=== PATIENT | female | born 1955 | race Caucasian/White ===

== ENCOUNTER → 2018-11-04 07:30 | Outpatient (CLI) | payer MEDICARE, OTHER, SELFPAY ==
[2018-11-04 08:17] LABS: Add Manual Diff / Slide Review NO; Basophils Absolute Auto 0 /uL (0-100); Basophils Percent Auto 0.4 % (0-2); Eosinophils Absolute Auto 100 /uL (0-450); Eosinophils Percent Auto 1.9 % (2-4); Hematocrit 41.9 % (36-46); Hemoglobin 14.1 g/dL (12.0-16.0); Lymphocytes Absolute Auto 1700 /uL (1100-4500); Lymphocytes Percent Auto 34.8 % (25-40); Mean Corpuscular HGB Conc 33.6 % (30-36); Mean Corpuscular Hemoglobin 30.7 PG (26-34); Mean Corpuscular Volume 91.5 fL (80-100); Monocytes Absolute Auto 300 /uL (0-900); Neutrophils Absolute Auto 2700 /uL (1500-7000); Neutrophils Percent Auto 55.9 % (50-75); Platelet Count 289 X10^3/uL (150-400); Red Blood Cell Count 4.58 X10^6/uL (4.0-5.2); Red Cell Distribution Width 13.2 % (11.6-14.8); White Blood Cell Count 4.9 X10^3/uL (4.5-11.0)
[2018-11-04 08:52] LABS: Alanine Aminotransferase 24 IU/L (9-52); Albumin 4.7 g/dL (3.5-5.0); Albumin Globulin Ratio 1.6 (1.0-2.8); Alkaline Phosphatase 52 U/L (38-126); Aspartate Aminotransferase 22 IU/L (14-36); BUN Creatinine Ratio 22.2 (6-22); Bilirubin Total 0.6 mg/dL (0.2-1.3); Blood Urea Nitrogen 20 mg/dL (7-17); Carbon Dioxide 27 mmol/L (22-32); Chloride 100 mmol/L (98-107); Cholesterol 249 mg/dL (140-199); Estimated Glomerular Filt Rate > 60.0 mL/min (>60); Glucose 89 mg/dL (80-110); HDL Cholesterol 100 mg/dL (40-60); HEMOLYSIS < 15 (0-50); LDL Cholesterol Calculated 139 mg/dL (<100); Potassium 4.2 mmol/L (3.4-5.1); Sodium 136 mmol/L (137-145); Total Protein 7.7 g/dL (6.3-8.2); Triglycerides 49 mg/dL (35-150)
[2018-11-04 08:59] LABS: Free T3, Triiodothyronine Free 3.21 pg/mL (2.77-5.27); Free T4, Direct Thyroxine 1.08 ng/dL (0.78-2.19)
[2018-11-04 09:01] LABS: C-Reactive Protein Quant < 0.5 mg/dL (<1.0)
[2018-11-05 13:57] LABS: Thyroid Peroxidase Antibodies 1 IU/mL (< 9)
[2018-11-06 16:35] LABS: DNA (DS) Antibody 1 IU/mL (< 5)
[2018-11-06 22:31] LABS: (tTG) Ab, IgA < 1 U/mL
== END ==
PROVIDERS: PCP Family Medicine; Visit Provider Family Medicine
DX: E83.52 Hypercalcemia (principal); I10 Essential (primary) hypertension; Z13.220 Encounter for screening for lipoid disorders; R63.4 Abnormal weight loss; R76.8 Other specified abnormal immunological findings in serum
CPT/HCPCS: 36415; 80053; 80061; 83516; 84439; 84443; 84481; 85025; 86140; 86225; 86255; 86376

== ENCOUNTER → 2018-11-11 14:37 | Outpatient (CLI) | payer MEDICARE, OTHER, SELFPAY ==
[2018-11-13 14:16] LABS: Parathyroid Hormone Int 57 pg/mL (14-64)
== END ==
PROVIDERS: PCP Family Medicine; Visit Provider Family Medicine
DX: E83.52 Hypercalcemia (principal)
CPT/HCPCS: 36415; 83970

== ENCOUNTER → 2019-06-08 10:19 | Outpatient (CLI) | payer MEDICARE, OTHER, SELFPAY ==
[2019-06-08 11:32] LABS: Mean Corpuscular HGB Conc 34.2 % (30-36); Mean Corpuscular Hemoglobin 31.1 PG (26-34); Mean Corpuscular Volume 91.1 fL (80-100); Platelet Count 290 X10^3/uL (150-400); Red Blood Cell Count 4.83 X10^6/uL (4.0-5.2); Red Cell Distribution Width 13.1 % (11.6-14.8); White Blood Cell Count 6.1 X10^3/uL (4.5-11.0)
[2019-06-08 12:12] LABS: TSH w/ Reflex to FT4 1.52 uIU/mL (0.47-4.68)
[2019-06-08 12:14] LABS: BUN Creatinine Ratio 21.3 (6-22); Blood Urea Nitrogen 17 mg/dL (7-17); Calcium 11.1 mg/dL (8.4-10.2); Carbon Dioxide 28 mmol/L (22-32); Chloride 103 mmol/L (98-107); Estimated Glomerular Filt Rate > 60.0 mL/min (>60); Glucose 97 mg/dL (80-110); HEMOLYSIS < 15 (0-50); Potassium 4.5 mmol/L (3.4-5.1); Sodium 137 mmol/L (137-145)
== END ==
PROVIDERS: PCP Family Medicine; Visit Provider Registered Nurse
DX: R00.2 Palpitations (principal); I49.8 Other specified cardiac arrhythmias
CPT/HCPCS: 36415; 80048; 83735; 84443; 85027

== ENCOUNTER → 2019-06-16 11:41 | Outpatient (CLI) | payer MEDICARE, OTHER, SELFPAY ==
--- NOTE | 2019-07-13 09:28 | PM.CARDMON.1 ---
[facility] Report Referral & Results Date Patient Seen: 06/16/19 Requesting provider: Almaz Wan Indication: Cardiac arrhythmia Duration of monitoring (days): 14 Diary information: There were 3 patient diary entries and 15 triggered events. The triggered events were associated with sinus rhythm as well as PVCs PACs and ventricular bigeminy and ventricular trigeminy The patient diary events were associated with sinus rhythm, PVCs, and ventricular bigeminy Data: Minimum heart rate identified was 46 beats per minute at 00:00 on 06/29/2019 Maximum sinus heart rate was 147 beats per minute at 11:01 on 06/27/2019 Maximum overall heart rate was 171 beats per minute at 10:51 on 06/24/2019 during a 4 beat run of SVT Less than 1% of identified beats were supraventricular ectopic in origin Approximately 1.8% of identified beats were ventricular ectopic in origin including 38 seconds of ventricular trigeminy and 18 seconds of ventricular bigeminy There were 2 runs of SVT the longest lasting 7 beats and the fastest lasting 4 beats as above Impression: Patient with more significant ventricular dysrhythmias including simple PVCs as well as ventricular bigeminy and trigeminy Rare and very short runs of SVT or atrial tachycardia Clinical correlation suggested
== END ==
PROVIDERS: PCP Family Medicine; Visit Provider Registered Nurse
DX: I49.9 Cardiac arrhythmia, unspecified (principal)
CPT/HCPCS: 0296T; 0298T

== ENCOUNTER → 2019-06-30 09:12 | Outpatient (CLI) | payer MEDICARE, OTHER, SELFPAY ==
--- NOTE | 2019-06-30 09:13 | DI.ECHO.S_ITS ---
[facility] +---------+ : : [address] : [place] : : : : [id number] : : : : Phone: [phone]+ Echocardiogram Report + + :Name: YIN GUTIERREZ Study Date: 06/30/2019 Height: 63 in : :[facility] Exam Location: [facility] Weight: 110 lb : : Gender: Female BSA: 1.5 m2 : :: 1955 Age: 64 yrs BP: 118/75 mmHg: :Reason For Study: PALPITATIONS : : Performed By: Joe Hale : :Referring: FLAKITO BRAGA : + + Interpretation Summary The left ventricle is normal in size. The left ventricular ejection fraction is normal. There are no focal wall motion abnormalities. The right ventricle is normal in size and function. Both atria are normal in size. The right ventricular systolic pressure is estimated to be at least 24 mmHg based on an estimated right atrial pressure of 3 mm Hg. No hemodynamically significant valvular abnormalities. No prior echo for comparison. Procedure: A two-dimensional transthoracic echocardiogram with color flow and Doppler was performed. The study quality was technically adequate. Images from the parasternal window were difficult to obtain and are suboptimal in quality. There is no prior echocardiogram noted for this patient. The patient was in normal sinus rhythm during the exam. Left Ventricle: The left ventricle is normal in size. There is normal left ventricular wall thickness. The ejection fraction is estimated to be 60-65%. The left ventricular ejection fraction is normal. There are no focal wall motion abnormalities. Diastolic parameters suggest probable normal left ventricular diastolic function and normal filling pressures. Right Ventricle: The right ventricle is normal in size and function. Atria: Both atria are normal in size. There is no Doppler evidence for an interatrial shunt. Mitral Valve: The mitral valve is normal in structure and function. There is trace mitral regurgitation. Aortic Valve: The aortic valve opens well. No aortic regurgitation is present. Tricuspid Valve: The tricuspid valve is normal in structure and function. The right ventricular systolic pressure is estimated to be at least 24 mmHg based on an estimated right atrial pressure of 3 mm Hg. Pulmonic Valve: The pulmonic valve is not well visualized. There is no pulmonic valvular regurgitation. Great Vessels: The aortic root is normal size. The ascending aorta could not be visualized. The pulmonary artery is normal size. The IVC is of normal diameter and collapses greater than 50% with a sniff. This suggests a low right atrial pressure of 3 mm Hg. Pericardium/ Pleura There is no pericardial effusion. There is no pleural effusion. MMode/2D Measurements & Calculations LVIDd: 3.9 cm LVOT diam: 1.9 cm LVIDs: 2.7 cm Ao Arch Diam (Prox Trans): 2.1 cm FS: 29.8 % EPSS: 0.41 cm IVSd: 0.60 cm LVPWd: 0.62 cm LV childress. diameter/BSA (cm/m^2): 2.6 LV sys. diameter/BSA (cm/m^2): 1.8 LA A2 area: 14.6 cm2 RA long axis: 4.2 cm LA A4 area: 17.0 cm2 RA area: 13.6 cm2 LA length (vol): 5.1 cm RA vol: 37.0 ml LA vol: 41.2 ml RA : 24.7 ml/m2 LA vol index: 27.4 ml/m2 IVC diam: 1.3 cm Doppler Measurements & Calculations Ao V2 max: 116.3 cm/sec LVOT Max Harrison: 93.1 cm/sec Ao V2 mean: 78.7 cm/sec LV V1 max P.5 mmHg Ao max P.4 mmHg LV V1 VTI: 19.1 cm Ao mean P.7 mmHg TAYLOR(I,D): 2.5 cm2 Ao V2 VTI: 21.8 cm TAYLOR(V,D): 2.3 cm2 sev ratio: 0.88 TAYLOR indexed to BSA (cm^2/m^2): 1.7 MV E max harrison: 82.6 cm/sec TR max harrison: 231.5 cm/sec MV A max harrison: 69.2 cm/sec TR max P.4 mmHg MV E/A: 1.2 PA V2 max: 87.4 cm/sec Med Peak E' Harrison: 10.2 cm/sec PA V2 mean: 64.7 cm/sec E/E' med: 8.1 PA mean P.8 mmHg Lat Peak E' Harrison: 10.6 cm/sec PA pr(Accel): 19.1 mmHg E/E' lat: 7.8 PA Accel Time: 0.12 sec E/e' average: 7.9 MV dec time: 0.16 sec SV(LVOT): 55.0 ml Electronically signed by: Hari Palumbo M.D. on Reading Physician:07/01/2019 05:28 PM
== END ==
PROVIDERS: PCP Family Medicine; Visit Provider Registered Nurse
DX: R00.2 Palpitations (principal)
CPT/HCPCS: 93306

== ENCOUNTER → 2019-07-17 10:18 | Outpatient (CLI) | payer MEDICARE, OTHER, SELFPAY ==
--- NOTE | 2019-07-17 10:21 | DI.US.S_ITS ---
PROCEDURE: US PELVIC COMPLETE INDICATIONS: PMB TECHNIQUE: Real-time scanning was performed of the pelvic organs, with image documentation. Additional endovaginal scanning was necessary due to incomplete visualization of the adnexal and endometrial structures by transabdominal scanning. COMPARISON: [facility], CT, ABDOMEN/PELVIS WITH CONTRAST, 12/09/2015, 8:10. [facility], US, PELVIC COMPLETE, 11/08/2015, 8:06. FINDINGS: Transabdominal scanning: Limited scanning through the kidneys shows no hydronephrosis. No pathologic free abdominal or pelvic fluid. Endovaginal scanning: Uterus: Uterus is normal in size at 6.6 x 3.1 x 4.7 cm. The endometrium is again not well-visualized secondary to 2 intramural fibroids which appear similar to prior examination with the largest measuring up to 1.8 cm. Ovaries: Ovaries not identified. No adnexal masses IMPRESSION: 1. The endometrial complex is again not well-visualized secondary to uterine fibroids which appear similar to prior examination. If indicated, pre and post contrast gynecologic protocol MRI could be performed for further assessment. Dictated by: Dontrell BROWNE Interpreted: Nallely Worrell MD on 07/17/2019 at 11:17 Approved by: Nallely Wrorell M.D. on 07/17/2019 at 14:42
== END ==
PROVIDERS: PCP Family Medicine; Visit Provider Family Medicine
DX: N95.0 Postmenopausal bleeding (principal); D25.1 Intramural leiomyoma of uterus
CPT/HCPCS: 76830; 76856

== ENCOUNTER → 2019-12-07 13:44 | Outpatient (CLI) | payer MEDICARE, OTHER, SELFPAY ==
--- NOTE | 2019-12-07 13:46 | DI.RAD.S_ITS ---
PROCEDURE: XR PELVIS 1-2V INDICATIONS: pain in pelvis TECHNIQUE: Single view(s) of the pelvis acquired. COMPARISON: [facility], PELVIS 1 OR 2 VIEWS, 04/18/2010, 11:11. [facility], PELVIS 1 OR 2 VIEWS, 08/18/2007, 13:25. FINDINGS: Bones: No fractures or dislocations. No suspicious bony lesions. Prior right total hip arthroplasty shows no evidence of device loosening or disruption. Soft tissues: Visualized bowel gas pattern is normal. No suspicious soft tissue calcifications. IMPRESSION: Normal alignment persisting in this patient with prior right total hip arthroplasty, no source of new pain is found. Dictated by: Stephan Latham M.D. on 12/07/2019 at 14:53 Approved by: Stephan Latham M.D. on 12/07/2019 at 14:54
--- NOTE | 2019-12-07 13:46 | DI.US.S_ITS ---
PROCEDURE: US PELVIC COMPLETE INDICATIONS: POSTMENOPAUSAL BLEEDING AND DISCHARGE TECHNIQUE: Real-time scanning was performed of the pelvic organs, with image documentation. Additional endovaginal scanning was necessary due to incomplete visualization of the adnexal and endometrial structures by transabdominal scanning. COMPARISON: [facility], , US PELVIC COMPLETE, 07/17/2019, 10:26. FINDINGS: Transabdominal scanning: Limited scanning through the kidneys shows no hydronephrosis. No pathologic free abdominal or pelvic fluid. Endovaginal scanning: Uterus: Uterus is normal in size at 4 x 2.7 x 4.5 cm. The endometrium measures 2 mm in combined thickness. Hypoechoic uterine lesions are seen, which are attributed to fibroids. They measure as follows: Mid central uterus, intramural a 1.7 x 1.3 x 1.4 cm Mid central uterus, intramural, 1.7 x 1.7 x 1.4 cm Ovaries: Neither ovary can be seen. No adnexal masses are seen. IMPRESSION: The endometrial stripe is not thickened. Small fibroids are seen. Dictated by: Sherman Bowling M.D. on 12/07/2019 at 16:59 Approved by: Sherman Bowling M.D. on 12/07/2019 at 17:01
== END ==
PROVIDERS: PCP Family Medicine; Referring Provider Family Medicine; Visit Provider Family Medicine
DX: N95.0 Postmenopausal bleeding (principal); D25.1 Intramural leiomyoma of uterus; N89.8 Other specified noninflammatory disorders of vagina; R10.2 Pelvic and perineal pain; Z96.641 Presence of right artificial hip joint
CPT/HCPCS: 72170; 76830; 76856

== ENCOUNTER → 2020-04-29 17:38 | Outpatient (CLI) | payer MEDICARE, OTHER, SELFPAY ==
[2020-05-02 10:40] LABS: SARS CoV19 IgG Negative (Negative)
== END ==
PROVIDERS: PCP Family Medicine; Referring Provider Family Medicine; Visit Provider Family Medicine
DX: Z03.818 Encounter for observation for suspected exposure to other biological agents ruled out (principal)
CPT/HCPCS: 36415; 86769

== ENCOUNTER → 2020-12-09 10:45 | Outpatient (CLI) | payer MEDICARE, OTHER, SELFPAY ==
--- NOTE | 2020-12-09 11:07 | DI.RAD.S_ITS ---
PROCEDURE: XR THORACIC SPINE 3V INDICATIONS: BACK PAIN TECHNIQUE: 3 views of the thoracic spine were acquired. COMPARISON: None. FINDINGS: Bones: No fractures or dislocations. No suspicious bony lesions. Twelve pairs of ribs are noted, and appear intact where visualized. S-shaped thoracolumbar spine scoliosis. Moderate degenerative disc disease noted throughout the thoracic spine. Soft tissues: No paravertebral stripe thickening. IMPRESSION: 1. Multilevel degenerative disc disease. 2. S-shaped scoliosis. 3. No fracture. No acute osseous lesion. If symptoms and/or clinical suspicion for pathology persists, evaluation with MRI should be considered for further assessment. Dictated by: Angie Do MD, PhD on 12/09/2020 at 17:20 Approved by: Angie Do MD, PhD on 12/09/2020 at 17:21
--- NOTE | 2020-12-09 11:07 | DI.RAD.S_ITS ---
PROCEDURE: XR LUMBAR SPINE 2-3V INDICATIONS: BACK PAIN TECHNIQUE: 3 views of the lumbar spine were acquired. COMPARISON: None. FINDINGS: Bones: 5 [id number] vertebrae are present. There is normal bony alignment. Mild convex left curvature of the thoracolumbar spine. No vertebral body compression fractures. No suspicious bony lesions. Soft tissues: Overlying bowel gas pattern is normal. No suspicious soft tissue calcifications. IMPRESSION: No fracture. No acute osseous lesion. If symptoms and/or clinical suspicion for pathology persists, evaluation with MRI should be considered for further assessment. Dictated by: Angie Do MD, PhD on 12/09/2020 at 17:22 Approved by: Angie Do MD, PhD on 12/09/2020 at 17:23
--- NOTE | 2020-12-09 11:07 | DI.RAD.S_ITS ---
PROCEDURE: XR RIBS LT MIN 3V W CXR1V INDICATIONS: rib pain/osteoporosis TECHNIQUE: 2 views of the left ribs were acquired, along with a single view chest. COMPARISON: None. FINDINGS: Surgical changes and devices: None. Bones and chest wall: No fractures or dislocations. No suspicious bony lesions. Overlying soft tissues appear unremarkable. Lungs and pleura: No pleural effusions or pneumothorax. Lungs appear clear. Mediastinum: Mediastinal contours appear normal. Heart size is normal. IMPRESSION: No displaced rib fracture. No acute cardiopulmonary disease process. Dictated by: Angie Do MD, PhD on 12/09/2020 at 17:21 Approved by: Angie Do MD, PhD on 12/09/2020 at 17:22
[2020-12-09 11:28] LABS: Add Manual Diff / Slide Review NO; Basophils Absolute Auto 0 /uL (0-100); Basophils Percent Auto 0.6 % (0-2); Eosinophils Absolute Auto 100 /uL (0-450); Eosinophils Percent Auto 1.5 % (2-4); Hematocrit 41.1 % (36-46); Hemoglobin 13.5 g/dL (12.0-16.0); Lymphocytes Absolute Auto 1600 /uL (1100-4500); Lymphocytes Percent Auto 28.1 % (25-40); Mean Corpuscular Hemoglobin 30.5 PG (26-34); Mean Corpuscular Volume 92.6 fL (80-100); Monocytes Absolute Auto 400 /uL (0-900); Monocytes Percent Auto 7.2 % (3-14); Neutrophils Absolute Auto 3500 /uL (1500-7000); Neutrophils Percent Auto 62.6 % (50-75); Platelet Count 268 X10^3/uL (150-400); Red Blood Cell Count 4.43 X10^6/uL (4.0-5.2); Red Cell Distribution Width 13.4 % (11.6-14.8); White Blood Cell Count 5.6 X10^3/uL (4.5-11.0)
[2020-12-09 11:49] LABS: Erythrocyte Sedimentation Rate 5 MM/HR (0-20)
[2020-12-09 11:55] LABS: Alanine Aminotransferase 15 IU/L (<35); Albumin 4.5 g/dL (3.5-5.0); Albumin Globulin Ratio 1.7 (1.0-2.8); Alkaline Phosphatase 62 U/L (38-126); Aspartate Aminotransferase 26 IU/L (14-36); BUN Creatinine Ratio 29.2 (6-22); Bilirubin Total 0.5 mg/dL (0.2-1.3); Blood Urea Nitrogen 21 mg/dL (7-17); C-Reactive Protein Quant < 0.5 mg/dL (<1.0); Calcium 10.8 mg/dL (8.4-10.2); Carbon Dioxide 30 mmol/L (22-32); Chloride 100 mmol/L (98-107); Estimated Glomerular Filt Rate > 60.0 mL/min (>60); Globulin 2.7 g/dL (1.7-4.1); Glucose 95 mg/dL (80-110); HEMOLYSIS < 15 (0-50); Potassium 4.2 mmol/L (3.4-5.1); Sodium 135 mmol/L (137-145); Total Protein 7.2 g/dL (6.3-8.2)
[2020-12-11 16:11] LABS: ANA Screen, IFA Negative (.)
== END ==
PROVIDERS: PCP Family Medicine; Referring Provider Family Medicine; Visit Provider Family Medicine
DX: R53.83 Other fatigue (principal); M54.9 Dorsalgia, unspecified; R07.81 Pleurodynia; R76.8 Other specified abnormal immunological findings in serum; M81.0 Age-related osteoporosis without current pathological fracture; M54.5 Low back pain; M51.34 Other intervertebral disc degeneration, thoracic region; M41.24 Other idiopathic scoliosis, thoracic region
CPT/HCPCS: 36415; 71101; 72072; 72100; 80053; 85025; 85651; 86038; 86140

== ENCOUNTER → 2021-01-06 08:12 | Outpatient (CLI) | payer MEDICARE, OTHER, SELFPAY ==
--- NOTE | 2021-01-06 08:14 | DI.MRI.S_ITS ---
PROCEDURE: MR THORACIC SPINE WO CON INDICATIONS: low back pain, sciatica, mid back pain TECHNIQUE: Noncontrast sagittal T1 spine echo and T2 fast spin echo, sagittal STIR, axial T1 and T2 fast spin echo through the thoracic spine. COMPARISON: None. FINDINGS: Image quality: Excellent. Alignment and Curvature: There is normal bony alignment. Bone Marrow: Reactive endplate changes noted adjacent to the T4-T5, T5-T6, T6-T7, T7-T8 and T8-T9 discs. No acute vertebral body compression fractures. Spinal Cord: Visualized spinal cord is normal in size and signal. Paraspinous Soft Tissues: No paravertebral masses. Miscellaneous: Loss of disc signal noted throughout the thoracic spine. Loss of height noted in the T3-T4, T4-T5, T5-T6, T6-T7, T7-T8 and T8-T9 disc. Small central T2-T3 disc protrusion. No central stenosis. No neural foraminal narrowing. No neural compression. IMPRESSION: 1. Multilevel degenerative disease. 2. No central stenosis. 3. No neural foraminal narrowing. 4. No neural compression. 5. No vertebral body compression fracture. Dictated by: Angie Do MD, PhD on 01/06/2021 at 12:08 Approved by: Angie Do MD, PhD on 01/06/2021 at 12:30
--- NOTE | 2021-01-06 08:14 | DI.MRI.S_ITS ---
PROCEDURE: MR LUMBAR SPINE WO CON INDICATIONS: low back pain, sciatica, mid back pain TECHNIQUE: Noncontrast sagittal T1 spin echo and T2 fast echo, sagittal STIR, axial T1 and T2 fast spin echo through the lumbar spine. In cases with scoliosis, additional coronal T2 fast spin echo may be performed. COMPARISON: [facility], MR, L-SPINE WITHOUT CONTRAST, 06/22/2010, 8:01. FINDINGS: Image quality: Excellent. Alignment and Curvature: There is normal bony alignment. Bone Marrow: Marrow is of normal overall signal. No acute vertebral body compression fractures. Spinal Cord: Conus medullaris terminates at the L1 level. Visualized cord demonstrates normal signal and size. Paraspinous Soft Tissues: No paravertebral masses. Discs: Moderate to severe desiccation is present L5-S1, moderate L1-L2, L2-3 and mild to moderate throughout the remainder of the lumbar spine. L1-L2: No disc bulge, spinal stenosis or foraminal narrowing. No interval change. Mild facet and ligamentum flavum hypertrophy. L2-L3: Minimal disc bulge, without spinal stenosis or foraminal narrowing. No interval change. Mild facet and ligamentum flavum hypertrophy. Minimal epidural lipomatosis. L3-L4: No disc bulge, spinal stenosis or foraminal narrowing. No interval change. Facet and ligamentum flavum hypertrophy are present. Minimal epidural lipomatosis. L4-L5: No disc bulge, spinal stenosis or foraminal narrowing. Facet and ligamentum flavum hypertrophy are present. No interval change. Minimal epidural lipomatosis. L5-S1: Minimal disc bulge without spinal stenosis. Minimal interval progression. IMPRESSION: 1. Relatively stable exam demonstrating minimal degenerative disc bulges most notable at L2-3 and L5-S1. Dictated by: Nighat Chavez M.D. on 01/06/2021 at 10:31 Approved by: Nighat Chavez M.D. on 01/06/2021 at 11:51
== END ==
PROVIDERS: PCP Family Medicine; Referring Provider Family Medicine; Visit Provider Family Medicine
DX: M54.5 Low back pain (principal); M54.6 Pain in thoracic spine; M54.30 Sciatica, unspecified side
CPT/HCPCS: 72146; 72148

== ENCOUNTER → 2021-11-29 07:35 | Outpatient (CLI) | payer MEDICARE, OTHER, SELFPAY ==
[2021-11-29 08:18] LABS: Specimen Label KIT TEST
== END ==
PROVIDERS: PCP Family Medicine; Referring Provider Chiropractor; Visit Provider Chiropractor
DX: Z13.9 Encounter for screening, unspecified (principal)
CPT/HCPCS: 36415; 99001

== ENCOUNTER 2021-12-18 21:08 | Emergency (ER) | payer MEDICARE, OTHER, SELFPAY ==
[2021-12-18 21:14] VITALS: BP 181/84; PULSE 98; RESP 16; TEMP 36.4; O2SAT 99; BMI 19.5
[2021-12-18 23:06] VITALS: O2SAT 98
[2021-12-18 23:07] VITALS: BP 144/75; PULSE 69; O2SAT 98
--- NOTE | 2021-12-18 23:17 | ED.HA ---
HPI - Headache General Chief Complaint: Headache Stated Complaint: NECK PAIN Time Seen by Provider: 12/18/21 22:53 Source: patient Mode of arrival: Ambulatory History of Present Illness HPI Narrative: Patient is a 66-year-old female here for evaluation of a headache/neck pain. Patient reports that approximately 3 days ago she started have discomfort in the back of her head. States she initially felt a pop. Has had pain since then. Has quite a bit of discomfort with movement of her head. No fevers. Took some ibuprofen without much improvement. Does not feel like it is a muscle spasm. Has no other neurologic symptoms. No sore throat. No numbness and tingling in her upper and lower extremities. No vision changes. No specific balance issues but does state that she sometimes feels woozy. Related Data Previous Rx's Medication Instructions Recorded valacyclovir 500 mg tablet 1,000 mg PO BID #20 tab 12/28/19 varicella-zoster glycoE [id number] 0.5 ml IM ONCE #1 each 03/22/20 adj(PF) 50 mcg/0.5 mL IM susp, kit (Shingrix (PF)) losartan 25 mg tablet See Rx Instructions .ROUTE 09/25/21 .COMPLEX #90 tab Allergies Allergy/AdvReac Type Severity Reaction Status Date / Time No Known Drug Allergies Allergy Verified 12/18/21 21:18 Review of Systems Constitutional Constitutional: Denies fatigue, Denies fever(s) and Reports headache(s) Eyes Eyes: Reports as per HPI and Reports system reviewed and no additional complaints, except as documented ENT Ears, Nose, Mouth, and Throat: Reports system reviewed and no additional complaints, except as documented, Reports as per HPI, Reports headache(s), Reports neck pain, Denies sinus pain and Denies sore throat Musculoskeletal Musculoskeletal: Reports neck pain Neurologic Neurologic: Reports system reviewed and no additional complaints, except as documented and Reports headache(s) Endocrine Endocrine: Denies fatigue Hematologic/Lymphatic On Anticoagulants: No Patient History Medical History Essential hypertension Hearing loss Irritable bowel syndrome Serum calcium elevated Surgical History History of hip replacement History of tonsillectomy Status post appendectomy Family History Mother Hypertension Sister Age: 68 Ovarian cancer Breast cancer Hypertension Social History marital status: education level: master's degree Smoking Status: Never smoker alcohol intake: current substance use type: does not use Smoking Status: Never smoker alcohol intake frequency: 0-2 drinks per day Substance Use Type: does not use Exam Initial Vital Signs Initial Vital Signs: Vital Signs Temperature 97.5 F L 12/18/21 21:14 Pulse Rate 98 H 12/18/21 21:14 Respiratory Rate 16 12/18/21 21:14 Blood Pressure 181/84 H 12/18/21 21:14 Pulse Oximetry 99 12/18/21 21:14 Const General: cooperative, healthy appearing and well developed HENMT Head: normal to inspection and normocephalic Face and sinus: normal facial exam Resp Effort & Inspection: normal respiratory effort Cardio Rate: regular rate Skin General: no rashes or lesions noted Neuro General: patient alert, patient awake, patient oriented x3, tone normal, moves all extremities, no focal motor deficits and not confused Extrem General: normal to inspection Psych Appearance: grossly normal and well kempt Course Orders Ordered: ED Orders 12/18/21 23:18 CT angio head and neck Stat 12/18/21 23:25 Basic Metabolic Panel Stat Complete Blood Count AUTO DIFF Stat Vital Signs Vital signs: Vital Signs - 8 hr 12/18/21 21:14 12/18/21 23:06 12/18/21 23:07 Temperature 97.5 F L Pulse Rate 98 H 69 Respiratory Rate 16 Blood Pressure 181/84 H 144/75 H Pulse Oximetry 99 98 98 12/18/21 23:30 12/19/21 00:13 12/19/21 00:30 Temperature Pulse Rate 64 66 65 Respiratory Rate Blood Pressure Pulse Oximetry 99 98 99 12/19/21 01:00 12/19/21 01:05 Temperature Pulse Rate 62 61 Respiratory Rate 16 Blood Pressure 129/83 Pulse Oximetry 98 99 MDM - Headache Lab Data Attestation: I reviewed the patient's lab results. Result diagrams: 12/18/21 23:25 12/18/21 23:25 Labs: Lab Results 12/18/21 12/18/21 Range/Units 23:25 23:25 WBC 8.6 (4.5-11.0) X10^3/uL RBC 3.96 L (4.0-5.2) X10^6/uL Hgb 11.9 L (12.0-16.0) g/dL Hct 35.9 L (36-46) % MCV 90.5 (80-100) fL MCH 30.1 (26-34) PG MCHC 33.3 (30-36) % RDW 12.4 (11.6-14.8) % Plt Count 415 H (150-400) X10^3/uL Neut % (Auto) 68.2 (50-75) % Lymph % (Auto) 19.3 L (25-40) % Williamson % (Auto) 9.6 (3-14) % Eos % (Auto) 1.9 L (2-4) % Baso % (Auto) 1.0 (0-2) % Neut # (Auto) 5900 (7474-1502) /uL Lymph # (Auto) 1700 (1304-9791) /uL Williamson # (Auto) 800 (0-900) /uL Eos # (Auto) 200 (0-450) /uL Baso # (Auto) 100 (0-100) /uL Sodium 136 L (137-145) mmol/L Potassium 4.6 (3.4-5.1) mmol/L Chloride 104 (98-107) mmol/L Carbon Dioxide 30 (22-32) mmol/L BUN 19 H (7-17) mg/dL Creatinine 0.75 (0.52-1.04) mg/dL Estimated GFR > 60.0 (>60) mL/min BUN/Creatinine Ratio 25.3 H (6-22) Glucose 112 H (80-110) mg/dL Calcium 10.6 H (8.4-10.2) mg/dL Imaging Data CTA - brain/neck: Radiologist's Impression: [address] [address] [address] Scan Report Signed Patient: Mary Bauer MR#: [id number] : 1955 Acct:[id number] Age/Sex: 66 / F Date of Service: 12/18/21 Loc: ED Accession Number: [id number] ?? Procedure: CT angio head and neck Ordering Provider: Shashank Bermudez D.O. PROCEDURE:? CT ANGIO HEAD AND NECK ? INDICATIONS:? posterior head and neck pain ? TECHNIQUE:? Pre-contrast 4.5 mm thick sections acquired from the foramen magnum to the vertex. After the administration of intravenous contrast, 1 mm thick sections acquired from the aortic arch through the [place] of [place].? Post-contrast 4.5 mm thick sections then re-acquired from the foramen magnum to the vertex.? 3-dimensional fycdoey-qmllzdpun-thwxrltegh (MIP) and/or volume rendering reformats were acquired of the central intracranial vasculature and neck separately. ? COMPARISON:? None. ? FINDINGS:? Image quality:? Excellent.? ? BRAIN:? CSF spaces:? Ventricles are symmetric in size and shape.? Basal cisterns are patent.? No extra-axial fluid collections.? ? Brain:? No midline shift.? No acute intracranial hemorrhage or mass effect.? Probable prominent.? Perivascular space at the inferior left basal ganglia versus chronic lacunar infarct.? Gordillo-white matter interface appears intact.? ? Skull and face:? Calvarium and facial bones appear intact, without suspicious lesions.? Orbits appear normal.? ? Sinuses:? Sinuses and mastoids are clear.? ? HEAD CT ANGIOGRAPHY:? Anterior circulation:? Minimal intracranial right internal carotid artery atherosclerotic calcifications without intermittently significant stenosis.? The intracranial left internal carotid artery is patent.? The flow within the paired anterior cerebral arteries is normal and symmetric.? The flow within the middle cerebral arteries is normal and symmetric.? The anterior communicating artery is seen.? No aneurysms are seen.? ? Posterior circulation:? Visualized portions of the vertebral arteries demonstrate normal caliber, and join to form a normal appearing basilar artery.? A type origin of the left posterior cerebral artery is noted a hypoplastic or aplastic P1 segment, a normal variant.? Flow within the posterior cerebral arteries is otherwise normal and symmetric.? No aneurysms are seen.? ? NECK CT ANGIOGRAPHY:? Carotid system:? The great vessels demonstrate a conventional anatomy as they arise from the aortic arch.? The origins of the common carotid arteries appear patent.? The common carotid arteries demonstrate normal caliber and courses.? The bifurcation regions are both widely patent.? The internal carotid arteries demonstrate normal calibers and courses.? ? Posterior circulation:? The origins of the vertebral arteries both appear widely patent.? The more superior extracranial portions of both vertebral arteries also demonstrate normal courses and calibers.? They join to form a normal appearing basilar artery.? ? Soft tissues:? Visualized neck soft tissues demonstrate no suspicious abnormalities.? ? Bones:? No suspicious bony lesions.? Mild multilevel degenerative changes are seen in the cervical spine. ? ? IMPRESSION:? 1. No acute intracranial hemorrhage or mass effect. 2. Prominent perivascular space versus less likely small chronic lacunar infarct at the inferior left basal ganglia. 3. No hemodynamically significant arterial stenosis or occlusion in the head or neck.? No arterial dissection.? No intracranial aneurysm is seen.? ? Any quantitative measurements of stenosis were performed using NASCET criteria.? ? ? Dictated by: Bc Castellano M.D. on 12/19/2021 at 0:26 ? ? Approved by: Bc Castellano M.D. on 12/19/2021 at 0:37?? MDM Narrative Medical decision making narrative: Patient declined offer for symptom treatment, pain medication. Patient does have quite a bit of difficulty with movement of her neck. No real specific muscle spasm felt on exam. No other systemic symptoms that would be consistent with this. I feel that we should hold on a lumbar puncture as I feel that the risks outweigh the benefits. Considered CVA/TIA however her head CT is unremarkable and other than the headache and the neck discomfort has no other neurologic deficits. The CTA of her head and neck is unremarkable. No signs of dissection, mass, intracranial hemorrhage. Unsure the exact etiology however this very well could still be musculoskeletal in origin. We will hold on further workup for now. Patient was given follow-up instructions and return precautions. She expressed understanding and agreement. Discharge Plan Departure Patient Disposition: Home Clinical Impression: Headache, Neck pain Instructions: DI for Headache Activity Restrictions/Additional Instructions: The CT scan today is very reassuring. I recommend that you continue with a conservative measures such as heat/ice/massage. Recommend you contact your primary doctor for a follow-up. Return to the emergency department for any new or worsening symptoms. Prescriptions: No Action Shingrix (PF) 50 mcg/0.5 mL suspension for reconstitution 0.5 ml IM ONCE Qty: 1 0RF Rx Instructions: as a single dose, repeat in 2-6 mos valacyclovir 500 mg tablet 1,000 mg PO BID Qty: 20 0RF Rx Instructions: Take 2 tablets twice day for 1 day....the others are for additional outbreaks. losartan 25 mg tablet See Rx Instructions .ROUTE .COMPLEX Qty: 90 0RF Dose Instruction: TAKE 1 TABLET BY MOUTH DAILY Rx Instructions: TAKE 1 TABLET BY MOUTH DAILY Referrals: Angeli Bowen DO [Primary Care Provider] -
--- NOTE | 2021-12-18 23:18 | DI.CT.S_ITS ---
PROCEDURE: CT ANGIO HEAD AND NECK INDICATIONS: posterior head and neck pain TECHNIQUE: Pre-contrast 4.5 mm thick sections acquired from the foramen magnum to the vertex. After the administration of intravenous contrast, 1 mm thick sections acquired from the aortic arch through the [place] of [place]. Post-contrast 4.5 mm thick sections then re-acquired from the foramen magnum to the vertex. 3-dimensional aytiynz-ppwgursah-dgktbkodgn (MIP) and/or volume rendering reformats were acquired of the central intracranial vasculature and neck separately. COMPARISON: None. FINDINGS: Image quality: Excellent. BRAIN: CSF spaces: Ventricles are symmetric in size and shape. Basal cisterns are patent. No extra-axial fluid collections. Brain: No midline shift. No acute intracranial hemorrhage or mass effect. Probable prominent. Perivascular space at the inferior left basal ganglia versus chronic lacunar infarct. Gordillo-white matter interface appears intact. Skull and face: Calvarium and facial bones appear intact, without suspicious lesions. Orbits appear normal. Sinuses: Sinuses and mastoids are clear. HEAD CT ANGIOGRAPHY: Anterior circulation: Minimal intracranial right internal carotid artery atherosclerotic calcifications without intermittently significant stenosis. The intracranial left internal carotid artery is patent. The flow within the paired anterior cerebral arteries is normal and symmetric. The flow within the middle cerebral arteries is normal and symmetric. The anterior communicating artery is seen. No aneurysms are seen. Posterior circulation: Visualized portions of the vertebral arteries demonstrate normal caliber, and join to form a normal appearing basilar artery. A type origin of the left posterior cerebral artery is noted a hypoplastic or aplastic P1 segment, a normal variant. Flow within the posterior cerebral arteries is otherwise normal and symmetric. No aneurysms are seen. NECK CT ANGIOGRAPHY: Carotid system: The great vessels demonstrate a conventional anatomy as they arise from the aortic arch. The origins of the common carotid arteries appear patent. The common carotid arteries demonstrate normal caliber and courses. The bifurcation regions are both widely patent. The internal carotid arteries demonstrate normal calibers and courses. Posterior circulation: The origins of the vertebral arteries both appear widely patent. The more superior extracranial portions of both vertebral arteries also demonstrate normal courses and calibers. They join to form a normal appearing basilar artery. Soft tissues: Visualized neck soft tissues demonstrate no suspicious abnormalities. Bones: No suspicious bony lesions. Mild multilevel degenerative changes are seen in the cervical spine. IMPRESSION: 1. No acute intracranial hemorrhage or mass effect. 2. Prominent perivascular space versus less likely small chronic lacunar infarct at the inferior left basal ganglia. 3. No hemodynamically significant arterial stenosis or occlusion in the head or neck. No arterial dissection. No intracranial aneurysm is seen. Any quantitative measurements of stenosis were performed using NASCET criteria. Dictated by: Bc Castellano M.D. on 12/19/2021 at 0:26 Approved by: Bc Castellano M.D. on 12/19/2021 at 0:37
--- NOTE | 2021-12-18 23:19 | PC.NURSE ---
pt c/o pain in the back of the head that started suddenly x 2 days pt has been taking ibuprofen and tylenol without relief, pain increases with movement but pt is able to move head
[2021-12-18 23:30] VITALS: PULSE 64; O2SAT 99
[2021-12-18 23:36] LABS: Add Manual Diff / Slide Review NO; Basophils Absolute Auto 100 /uL (0-100); Eosinophils Absolute Auto 200 /uL (0-450); Eosinophils Percent Auto 1.9 % (2-4); Hematocrit 35.9 % (36-46); Hemoglobin 11.9 g/dL (12.0-16.0); Lymphocytes Absolute Auto 1700 /uL (1100-4500); Lymphocytes Percent Auto 19.3 % (25-40); Mean Corpuscular HGB Conc 33.3 % (30-36); Mean Corpuscular Hemoglobin 30.1 PG (26-34); Mean Corpuscular Volume 90.5 fL (80-100); Monocytes Absolute Auto 800 /uL (0-900); Monocytes Percent Auto 9.6 % (3-14); Neutrophils Absolute Auto 5900 /uL (1500-7000); Neutrophils Percent Auto 68.2 % (50-75); Platelet Count 415 X10^3/uL (150-400); Red Blood Cell Count 3.96 X10^6/uL (4.0-5.2); Red Cell Distribution Width 12.4 % (11.6-14.8); White Blood Cell Count 8.6 X10^3/uL (4.5-11.0)
[2021-12-18 23:46] LABS: BUN Creatinine Ratio 25.3 (6-22); Blood Urea Nitrogen 19 mg/dL (7-17); Calcium 10.6 mg/dL (8.4-10.2); Carbon Dioxide 30 mmol/L (22-32); Chloride 104 mmol/L (98-107); Estimated Glomerular Filt Rate > 60.0 mL/min (>60); Glucose 112 mg/dL (80-110); HEMOLYSIS < 15 (0-50); Potassium 4.6 mmol/L (3.4-5.1); Sodium 136 mmol/L (137-145)
[2021-12-19 00:13] VITALS: PULSE 66; O2SAT 98
[2021-12-19 00:30] VITALS: PULSE 65; O2SAT 99
--- NOTE | 2021-12-19 00:59 | PC.NURSE ---
charted on wrong pt
[2021-12-19 01:00] VITALS: PULSE 62; O2SAT 98
[2021-12-19 01:05] VITALS: BP 129/83; PULSE 61; RESP 16; O2SAT 99
== END 2021-12-19 01:25 | disposition home or self-care (01) ==
PROVIDERS: Emergency Provider Emergency Medicine; PCP Family Medicine
DX: R51.9 Headache, unspecified (principal); M54.2 Cervicalgia
CPT/HCPCS: 36415; 70496; 70498; 80048; 85025; 99284; Q9967

== ENCOUNTER → 2022-03-10 08:16 | Outpatient (CLI) | payer MEDICARE, OTHER, SELFPAY | PROVIDERS: PCP Family Medicine; Referring Provider Chiropractor; Visit Provider Chiropractor | DX: I10 Essential (primary) hypertension (principal) | CPT/HCPCS: 36415; 99001 ==

== ENCOUNTER 2023-09-15 22:21 | Emergency (ER) | payer MEDICARE, OTHER, SELFPAY ==
[2023-09-15 22:28] VITALS: BP 175/87; PULSE 83; RESP 16; TEMP 36.8; O2SAT 100; BMI 19.5
--- NOTE | 2023-09-15 22:32 | DI.US.S_ITS ---
PROCEDURE: US PERIPH VENOUS LOW EXTREM LT INDICATIONS: PAIN TECHNIQUE: Real-time imaging, as well as color and pulse Doppler interrogation, were performed of the lower extremity deep veins from the inguinal ligament to the popliteal fossa, with documentation of the visualized calf veins. COMPARISON: None. FINDINGS: The common femoral, femoral, popliteal, and the visualized calf veins are normally compressible, and free of intraluminal thrombus. Color and pulse Doppler demonstrate normal phasic intraluminal flow. There is normal augmentation response to distal compression maneuver. A fluid collection is seen in the popliteal fossa measuring 4.3 x 1.1 x 2.0 cm. Connection with the joint space is not demonstrated on this exam. IMPRESSION: 1. No findings of lower extremity deep venous thrombosis. 2. Medial popliteal Sarmiento's cyst. Approved by: Bc Castellano M.D. on 09/15/2023 at 23:23
[2023-09-15 22:55] VITALS: BP 163/87; PULSE 79; O2SAT 98
[2023-09-15 23:17] VITALS: PULSE 79; O2SAT 98
[2023-09-15 23:18] VITALS: BP 165/77; PULSE 79; O2SAT 98
[2023-09-15 23:30] VITALS: BP 142/65; PULSE 71; O2SAT 98
[2023-09-16] VITALS: PULSE 68; O2SAT 98
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
== END 2023-09-16 00:18 | disposition home or self-care (01) ==
PROVIDERS: Emergency Provider Emergency Medicine; PCP Family Medicine
DX: S83.92XA Sprain of unspecified site of left knee, initial encounter (principal); X58.XXXA Exposure to other specified factors, initial encounter
CPT/HCPCS: 93971; 99283

== ENCOUNTER → 2023-12-20 16:41 | Outpatient (CLI) | payer MEDICARE, OTHER, SELFPAY ==
--- NOTE | 2023-12-20 17:00 | DI.MRI.S_ITS ---
PROCEDURE: MR KNEE LT WO CON INDICATIONS: knee pain, assess for meniscal tear TECHNIQUE: Noncontrast sagittal PD fast spin echo and T2 fast spin echo with fat saturation, sagittal 3-D FLASH with fat saturation; coronal T1 spin echo and PD fast spin echo with fat saturation, and axial PD fast spin echo with fat saturation through the knee. COMPARISON: None. FINDINGS: Image quality: Diagnostic Menisci: Medial: No full-thickness defect. Possible fraying at the periphery. There may be signal abnormality focally at the root, without full-thickness avulsion (10/20). Lateral: Intact. Meniscopopliteal fascicles maintained. Cruciate ligaments: Intact Medial structures: MCL: Intact Pes anserine tendons: Intact Semimembranosus: Mild insertional tendinopathy Lateral structures: LCL: Intact Biceps femoris: Intact IT band: Intact Popliteus tendon: Intact Anterior structures: Extensor mechanism: Intact. Mild prepatellar edema. Fat pads: Lufu-zi-jrladtyv edema is seen focally in the superolateral corner Medial retinaculum: Intact. Trochlea: Slightly shallow. Bone and joint: Bones: No acute fracture. Tiny foci of signal within the marrow, likely physiologic red marrow islands Cartilage: Full-thickness defect in the inferior and inferolateral patellar cartilage with subchondral edema. Ckwx-rn-jfuyrpro heterogeneity is seen in the cartilage elsewhere. No full-thickness defect otherwise. Mild osteophytes are present. Joint space: Physiologic fluid is present Sarmiento's cyst: Mild Sarmiento's cyst Soft tissues: No significant vascular or other soft tissue pathology. IMPRESSION: Focal contusion and cartilage loss in the inferior median ridge and inferior lateral aspect of the patella. There is adjacent edema in the superolateral corner of Hoffa's fat pad. Findings may represent a focal contusion with cartilage involvement versus repetitive/chronic injury related to maltracking. Cruciate and collateral ligaments appear intact. Possible fraying of the medial meniscal periphery. Questionable signal abnormality at the medial meniscal root insertion, possibly small partial tear or artifact, no full-thickness avulsion. Overall mild degenerative changes. Dictated by: Addy Clark M.D. on 12/23/2023 at 9:25 Approved by: Addy Clark M.D. on 12/23/2023 at 9:32
== END ==
PROVIDERS: PCP Family Medicine; Referring Provider Family Medicine; Visit Provider Family Medicine
DX: S80.02XA Contusion of left knee, initial encounter (principal); M79.4 Hypertrophy of (infrapatellar) fat pad; M71.22 Synovial cyst of popliteal space [Baker], left knee; M25.562 Pain in left knee
CPT/HCPCS: 73721

== ENCOUNTER → 2024-01-22 11:46 | Outpatient (CLI) | payer MEDICARE, OTHER, SELFPAY ==
[2024-01-25 07:07] LABS: Chlamydia trachomatis Negative (Negative); Mycoplasma genitalium Negative (Negative); Neisseria gonorrhoeae Negative (Negative)
== END ==
PROVIDERS: PCP Family Medicine; Visit Provider Family Medicine
DX: Z11.3 Encounter for screening for infections with a predominantly sexual mode of transmission (principal); Z11.51 Encounter for screening for human papillomavirus (HPV)
CPT/HCPCS: 87210; 87491; 87563; 87591

== ENCOUNTER 2024-03-26 10:43 | Emergency (ER) | payer MEDICARE, OTHER, SELFPAY ==
[2024-03-26] VITALS (17 sets, daily range): BP systolic 93–136; BP diastolic 59–96; PULSE 74–94; RESP 14; TEMP 36.5–37.3; O2SAT 96–100; BMI 19.3
[2024-03-26 11:33] LABS: Add Manual Diff / Slide Review NO; Basophils Absolute Auto 0 /uL (0-100); Basophils Percent Auto 0.2 % (0-2); Eosinophils Absolute Auto 0 /uL (0-450); Eosinophils Percent Auto 0.2 % (2-4); Hematocrit 49.5 % (36-46); Hemoglobin 17.1 g/dL (12.0-16.0); Lymphocytes Absolute Auto 600 /uL (1100-4500); Lymphocytes Percent Auto 8.9 % (25-40); Mean Corpuscular HGB Conc 34.5 % (30-36); Mean Corpuscular Hemoglobin 30.4 PG (26-34); Mean Corpuscular Volume 88.2 fL (80-100); Monocytes Absolute Auto 700 /uL (0-900); Monocytes Percent Auto 9.6 % (3-14); Neutrophils Absolute Auto 5700 /uL (1500-7000); Neutrophils Percent Auto 81.1 % (50-75); Platelet Count 289 X10^3/uL (150-400); Red Blood Cell Count 5.61 X10^6/uL (4.0-5.2)
[2024-03-26] MEDS: SODIUM CHLORIDE 0.9% 1,000 ML 1000 ML IV ×2 (11:35→17:07)
[2024-03-26] MEDS: ONDANSETRON 4 MG/2 ML INJ IV (11:37)
[2024-03-26 11:49] LABS: Alanine Aminotransferase 23 IU/L (<35); Albumin 4.6 g/dL (3.5-5.0); Albumin Globulin Ratio 1.4 (1.0-2.8); Alkaline Phosphatase 66 U/L (38-126); Aspartate Aminotransferase 27 IU/L (14-36); BUN Creatinine Ratio 17.9 (6-22); Bilirubin Total 0.7 mg/dL (0.2-1.3); Blood Urea Nitrogen 20 mg/dL (7-17); Calcium 11.4 mg/dL (8.4-10.2); Carbon Dioxide 25 mmol/L (22-32); Chloride 97 mmol/L (98-107); Estimated Glomerular Filt Rate 53 mL/min (>60); Globulin 3.3 g/dL (1.7-4.1); Glucose 136 mg/dL (80-110); HEMOLYSIS < 15 (0-50); Lipase 104 U/L (23-300); Potassium 4.1 mmol/L (3.4-5.1); Sodium 131 mmol/L (137-145); Total Protein 7.9 g/dL (6.3-8.2)
[2024-03-26 13:01] LABS: Bacteria Urine Occasional (0-1); Calcium Oxalate Crystals Urine Moderate; Culture Indicated Urine Cult Not Indicated; Mucus Urine 2+ (Negative); RBC Urine 0-1/HPF (0-5/HPF); Squamous Epithelial Cell Urine 0-1 /HPF (0-5/HPF); Urine Volume 10mL (spun); WBC Urine 0-1/HPF (0-5/HPF)
--- NOTE | 2024-03-26 13:41 | EKG_ITS ---
[address] [address] Test Date: 2024-03-26 Pat Name: Mary Bauer Department: [facility] Room: Gender: Female Regulatory Analyst: : 1955 Requested By: Order Number: [id number] Reading MD: Fco Groves MD Measurements Intervals [place] Rate: 90 P: 62 NE: 98 QRS: 88 QRSD: 78 T: 69 QT: 332 QTc: 406 Interpretive Statements Sinus rhythm with short NE Electronically Signed On 03-26-2024 14:34:53 PDT by Fco Groves MD
[2024-03-26 18:26] LABS: Adenovirus F 40/41 Not Detected (Not Detect); Astrovirus Not Detected (Not Detect); Campylobacter Not Detected (Not Detect); Clostridium difficile toxin AB Not Detected (Not Detect); Cryptosporidium Not Detected (Not Detect); Cyclospora cayetanensis Not Detected (Not Detect); Entamoeba histolytica Not Detected (Not Detect); Enteroaggregative E.coli Not Detected (Not Detect); Enteropathogenic E.coli Not Detected (Not Detect); Enterotoxigenic E.coli It/st Not Detected (Not Detect); Giardia lamblia Not Detected (Not Detect); Norovirus GI/GII Not Detected (Not Detect); Plesiomonsa shigelloides Not Detected (Not Detect); Rotavirus A Not Detected (Not Detect); Salmonella Detected (Not Detect); Sapovirus Not Detected (Not Detect); Shiga-like toxin-prod E.coli Not Detected (Not Detect); Shigella/Enteroinvasive E.coli Not Detected (Not Detect); Vibrio Not Detected (Not Detect); Vibrio cholerae Not Detected (Not Detect); Yersinia enterocolitica Not Detected (Not Detect)
--- NOTE | 2024-03-26 18:54 | ED.NAVMDI ---
HPI - Nausea/Vomiting/Diarrhea General Chief complaint: Nausea/Vomiting/Diarrhea Stated complaint: dehydration, diarrhea t-5, confusion, abd pain Time Seen by Provider: 03/26/24 17:56 Source: patient Mode of arrival: Wheelchair History of Present Illness HPI Narrative: 69-year-old female is here for evaluation of 5 days of nonbloody diarrhea. Did have vomiting at the beginning of her presenting symptoms but that has resolved. She states that she feels dehydrated. Was confused this morning. Was lightheaded. Abdominal pain whenever she eats or drinks anything. No recent travel. No recent antibiotic use. No urinary symptoms. Has not tried anything for symptoms prior to arrival. Related Data Previous Rx's Medication Instructions Recorded losartan 25 mg tablet 25 mg PO DAILY #90 tabs 10/10/23 conjugated estrogens 0.625 mg/gram 0.5 mg vaginal 2XW #30 grams 01/22/24 vaginal cream ciprofloxacin HCl 500 mg tablet 500 mg PO BID 10 days #20 tabs 03/26/24 (Cipro) ondansetron 4 mg disintegrating 4 mg PO Q6H PRN nausea and 03/26/24 tablet vomiting #10 tabs Allergies Allergy/AdvReac Type Severity Reaction Status Date / Time No Known Drug Allergies Allergy Verified 03/26/24 11:10 Review of Systems Review of Systems ROS Unobtainable: All systems reviewed & are unremarkable except as noted in HPI and below Patient History Medical History Dyspareunia Pulmonary hypertension, unspecified (06/23/12) Left knee pain Lumbosacral radiculopathy due to degenerative joint disease of spine Essential hypertension Serum calcium elevated Hearing loss Irritable bowel syndrome Surgical History History of hip replacement Status post appendectomy History of tonsillectomy Family History Mother Hypertension Sister Age: 70 Ovarian cancer Breast cancer Hypertension Social History marital status: education level: master's degree Smoking Status: Never smoker second hand exposure: No alcohol intake: current substance use type: does not use Smoking Status: Never smoker alcohol intake frequency: 0-2 drinks per day Substance Use Type: does not use Exam Initial Vital Signs Initial Vital Signs: Vital Signs Temperature 97.7 F 03/26/24 11:10 Pulse Rate 94 H 03/26/24 11:10 Respiratory Rate 14 03/26/24 11:10 Blood Pressure 93/62 03/26/24 11:10 Pulse Oximetry 99 03/26/24 11:10 Oxygen Delivery Method Room Air 03/26/24 11:10 Const General: cooperative and No ill appearing HENHI Head: normal to inspection and normocephalic Resp Effort & Inspection: normal respiratory effort Auscultation: clear to auscultation bilaterally Cardio Rate: regular rate Rhythm: regular rhythm GI Inspection: normal to inspection and non-distended Palpation: soft, No firm and No guarding Neuro General: patient alert and patient awake Extrem General: normal to inspection Course Orders Ordered: ED Orders 03/26/24 17:04 GI Panel (Film Array) Stat Discontinued Medications Ciprofloxacin (Ciprofloxacin 250 Mg Tablet) 500 mg PO NOW ONE Stop: 03/26/24 18:56 Last Admin: 03/26/24 19:08 Dose: 500 mg Documented By: PARISH Sodium Chloride (Normal Saline 0.9%) 1,000 mls @ 1,000 mls/hr IV BOLUS ONE Stop: 03/26/24 12:34 Last Infusion: 03/26/24 12:16 Dose: Infused Documented By: Admin: 03/26/24 11:35 Dose: 1,000 mls/hr Documented By: KATE Sodium Chloride (Normal Saline 0.9%) 1,000 mls @ 1,000 mls/hr IV BOLUS ONE Stop: 03/26/24 17:58 Last Infusion: 03/26/24 18:07 Dose: Infused Documented By: Admin: 03/26/24 17:07 Dose: 1,000 mls/hr Documented By: BRIAN Ondansetron HCl (Ondansetron 4 Mg/2 Ml Inj) 4 mg IV NOW PRN PRN Reason: Nausea And Vomiting Last Admin: 03/26/24 11:37 Dose: 4 mg Documented By: KATE Ondansetron HCl (Ondansetron 4 Mg Odt Prepack) 1 bottle MISC DIRECTED ONE Stop: 03/26/24 18:56 Last Admin: 03/26/24 19:09 Dose: 1 bottle Documented By: PARISH Vital Signs Vital signs: Vital Signs - 8 hr 03/26/24 15:00 03/26/24 15:01 03/26/24 15:01 Pulse Rate 77 75 Blood Pressure 122/59 L Pulse Oximetry 97 97 03/26/24 15:36 03/26/24 15:36 03/26/24 15:56 Pulse Rate 85 Blood Pressure 118/66 121/68 Pulse Oximetry 98 03/26/24 15:56 03/26/24 16:00 03/26/24 16:00 Pulse Rate 74 80 Blood Pressure 122/76 Pulse Oximetry 98 100 03/26/24 16:30 03/26/24 16:30 03/26/24 17:00 Pulse Rate 75 76 Blood Pressure 115/68 Pulse Oximetry 99 96 03/26/24 17:04 03/26/24 17:04 03/26/24 17:30 Pulse Rate 79 Blood Pressure 125/75 132/65 Pulse Oximetry 98 03/26/24 17:30 03/26/24 18:00 03/26/24 18:00 Pulse Rate 74 78 Blood Pressure 115/96 H Pulse Oximetry 99 99 03/26/24 18:30 03/26/24 19:00 03/26/24 19:12 Pulse Rate 92 H 79 Blood Pressure 136/74 Pulse Oximetry 98 98 03/26/24 19:12 Pulse Rate 83 Blood Pressure Pulse Oximetry 97 MDM - Nausea/Vomiting/Diarrhea Lab Data Attestation: I reviewed the patient's lab results. 03/26/24 11:23 03/26/24 11:23 Labs: Lab Results 03/26/24 03/26/24 03/26/24 Range/Units 11:23 12:25 17:04 WBC 7.0 (4.5-11.0) X10^3/uL RBC 5.61 H (4.0-5.2) X10^6/uL Hgb 17.1 H (12.0-16.0) g/dL Hct 49.5 H (36-46) % MCV 88.2 (80-100) fL MCH 30.4 (26-34) PG MCHC 34.5 (30-36) % RDW 13.0 (11.6-14.8) % Plt Count 289 (150-400) X10^3/uL Neut % (Auto) 81.1 H (50-75) % Lymph % (Auto) 8.9 L (25-40) % [place] % (Auto) 9.6 (3-14) % Eos % (Auto) 0.2 L (2-4) % Baso % (Auto) 0.2 (0-2) % Neut # (Auto) 5700 (8024-6810) /uL Lymph # (Auto) 600 L (2027-7023) /uL [place] # (Auto) 700 (0-900) /uL Eos # (Auto) 0 (0-450) /uL Baso # (Auto) 0 (0-100) /uL Sodium 131 L (137-145) mmol/L Potassium 4.1 (3.4-5.1) mmol/L Chloride 97 L (98-107) mmol/L Carbon Dioxide 25 (22-32) mmol/L BUN 20 H (7-17) mg/dL Creatinine 1.12 H (0.52-1.04) mg/dL Estimated GFR 53 L (>60) mL/min BUN/Creatinine Ratio 17.9 (6-22) Glucose 136 H (80-110) mg/dL Calcium 11.4 H (8.4-10.2) mg/dL Total Bilirubin 0.7 (0.2-1.3) mg/dL AST 27 (14-36) IU/L ALT 23 (<35) IU/L Alkaline Phosphatase 66 (38-126) U/L Total Protein 7.9 (6.3-8.2) g/dL Albumin 4.6 (3.5-5.0) g/dL Globulin 3.3 (1.7-4.1) g/dL Albumin/Globulin Ratio 1.4 (1.0-2.8) Lipase 104 (23-300) U/L Urine RBC 0-1/hpf (0-5/HPF) Urine WBC 0-1/hpf (0-5/HPF) Ur Squamous Epith Cells 0-1 /hpf (0-5/HPF) Calcium Oxalate Crystal Moderate H Urine Bacteria Occasional (0-1) (None) Urine Mucus 2+ H (Negative) Ur Culture Indicated? Cult not indicated Vol Urine Centrifuged 10ml (spun) Stl C. cayetanensis PCR Not detected (Not Detect) Stool Rotavirus (PCR) Not detected (Not Detect) Stool Adenovirus (PCR) Not detected (Not Detect) Stool Astrovirus (PCR) Not detected (Not Detect) Stool Cryptosporidium PCR Not detected (Not Detect) Stl E.coli Shiga Tox PCR Not detected (Not Detect) St Sh/Enteroin Ecoli PCR Not detected (Not Detect) Stl Enterotoxigenic E PCR Not detected (Not Detect) Stool EPEC (PCR) Not detected (Not Detect) Stl E. histolytica PCR Not detected (Not Detect) Stool Giardia Lamblia PCR Not detected (Not Detect) Stool Sapovirus (PCR) Not detected (Not Detect) Stl P. shigelloides PCR Not detected (Not Detect) St Y.enterocolitica PCR Not detected (Not Detect) Stool Vibrio (PCR) Not detected (Not Detect) Stl Vibrio cholerae PCR Not detected (Not Detect) Stl Enteroaggr Ecoli PCR Not detected (Not Detect) Stl Norovirus GI/GII PCR Not detected (Not Detect) Campylobacter (PCR) Not detected (Not Detect) C. difficile Tox (PCR) Not detected (Not Detect) Salmonella (PCR) Detected (Not Detect) Urine Dip Bedside Urine Glucose Negative Bedside Urine Bilirubin - Negative Bedside Urine Ketone ++ 40 Urine Specific [place] 1.030 Bedside Urine Occult Blood ++ Bedside Urine pH 6.0 Bedside Urine Protein + 30 Bedside Urine Urobilinogen +/- 1mg Bedside Urine Nitrite - Negative Bedside Urine Leukocytes - Negative Esterase ECG Data Attestation: I personally reviewed and interpreted this ECG as follows: Prior ECG tracings: available for review Interpretation: Sinus rhythm Ventricular rate 90 Normal axis Normal QRS Normal QTC No ST T wave changes MDM Narrative Medical decision making narrative: Patient does have a very benign exam. Received fluids. Her stool sample was positive for Salmonella. She does have a relatively benign abdominal exam without any distention. I do feel we can hold on radiologic studies for now. Patient tolerated a dose of oral antibiotics here in the ER. Will send home with a prescription for antibiotics. Patient was given return precautions. She expressed understanding and agreement. Discharge Plan Departure Patient Disposition: Home Clinical Impression: Salmonella Instructions: Diarrhea Activity Restrictions/Additional Instructions: Your prescription for antibiotics and nausea medication was sent to [facility]. Please start taking it as directed. I do recommend that you try to increase your fluid intake by drinking small amounts frequently. [place] diet that can be advanced as tolerated. Return to the emergency department for new symptoms. Contact your primary doctor for a follow-up. Prescriptions: New ciprofloxacin HCl [Cipro] 500 mg tablet 500 mg PO BID 10 Days Qty: 20 0RF ondansetron 4 mg tablet,disintegrating 4 mg PO Q6H PRN (Reason: nausea and vomiting) Qty: 10 0RF No Action conjugated estrogens 0.625 mg/gram cream 0.5 mg vaginal 2XW Qty: 30 0RF Rx Instructions: apply twice weekly losartan 25 mg tablet 25 mg PO DAILY Qty: 90 3RF Referrals: Andree Albrecht MD [Primary Care Provider] - Stand Alone Forms: Patient Portal/API
[2024-03-26] MEDS: CIPROFLOXACIN 250 MG TABLET 500 MG PO (19:08)
[2024-03-26] MEDS: ONDANSETRON 4 MG ODT PREPACK 1 BOTTLE MISC (19:09)
== END 2024-03-26 19:26 | disposition home or self-care (01) ==
PROVIDERS: Emergency Medicine; Emergency Provider Emergency Medicine; PCP Family Medicine
DX: A02.9 Salmonella infection, unspecified (principal); R10.9 Unspecified abdominal pain
CPT/HCPCS: 36415; 80053; 81003; 81015; 83690; 85025; 87507; 93005; 96361; 96374; 99284; J2405

== ENCOUNTER 2024-12-15 11:39 | Emergency (ER) | payer MEDICARE, OTHER, SELFPAY ==
[2024-12-15] VITALS (15 sets, daily range): BP systolic 129–216; BP diastolic 72–100; PULSE 62–87; RESP 12–25; TEMP 36.1; O2SAT 99–100; BMI 19.5
--- NOTE | 2024-12-15 12:06 | DI.CT.S_ITS ---
PROCEDURE: CT STROKE INDICATIONS: tia suspected TECHNIQUE: Noncontrast 4.5 mm thick angled axial sections acquired from the foramen magnum to the vertex, with coronal reformats. For radiation dose reduction, the following was used: automated exposure control, adjustment of mA and/or kV according to patient size. COMPARISON: [facility], CT, CT ANGIO HEAD AND NECK, 12/18/2021, 23:24. [facility], CT, CT ANGIO HEAD AND NECK, 12/15/2024, 12:17. FINDINGS: Image quality: Diagnostic. CSF spaces: Basal cisterns are patent. No extra-axial fluid collections. The ventricles are symmetric in size and shape. Brain: No intracranial bleeds or masses. There is cerebral volume loss for age, with resultant ventricular and sulcal prominence. There are periventricular and deep white matter chronic small vessel ischemic changes. There is intracranial internal carotid artery atherosclerosis. Skull and face: Calvarium and visualized facial bones appear intact, without suspicious lesions. Sinuses: Visualized sinuses and mastoids are clear. IMPRESSION: 1. No acute intracranial process. 2. Moderate atrophy and chronic microvascular ischemic changes. The above findings were discussed with Dr. Gordon Gutierrez on 12/15/2024 12:38 p.m. This study fulfills neurological imaging criteria for inclusion or exclusion of acute stroke therapies based on available published neurological guidelines. Dictated by: Nighat Chavez M.D. on 12/15/2024 at 12:36 Approved by: Nighat Chavez M.D. on 12/15/2024 at 12:38
--- NOTE | 2024-12-15 12:06 | DI.CT.S_ITS ---
PROCEDURE: CT ANGIO HEAD AND NECK INDICATIONS: tia suspected TECHNIQUE: After the administration of intravenous contrast, 1 mm thick sections acquired from the aortic arch through the [place]. 3-dimensional ptjppju-vzyrddqmo-hvuwovjjhk (MIP) and/or volume rendering reformats were acquired of the central intracranial vasculature and neck separately. For radiation dose reduction, the following was used: automated exposure control, adjustment of mA and/or kV according to patient size. COMPARISON: [facility], CT, CT STROKE, 12/15/2024, 12:17. [facility], CT, CT ANGIO HEAD AND NECK, 12/18/2021, 23:24. FINDINGS: Image quality: Diagnostic. BRAIN: See separately dictated CT head report of 12/15/2024. HEAD CT ANGIOGRAPHY: Anterior circulation: Intracranial internal carotid arteries are normal in size and flow. The flow within the paired anterior cerebral arteries is normal and symmetric. The flow within the middle cerebral arteries is normal and symmetric. The anterior communicating artery is seen. No aneurysms are seen. Posterior circulation: Left vertebral artery dominance. Visualized portions of the vertebral arteries demonstrate normal caliber, and join to form a normal appearing basilar artery. Flow within the posterior cerebral arteries is normal and symmetric. No aneurysms are seen. NECK CT ANGIOGRAPHY: Carotid system: The great vessels demonstrate a conventional anatomy as they arise from the aortic arch. The origins of the common carotid arteries appear patent. The common carotid arteries demonstrate normal caliber and courses. The bifurcation regions are both widely patent. The internal carotid arteries demonstrate normal calibers and courses. Posterior circulation: The origins of the vertebral arteries both appear widely patent. The more superior extracranial portions of both vertebral arteries also demonstrate normal courses and calibers. They join to form a normal appearing basilar artery. Soft tissues: Visualized neck soft tissues demonstrate no suspicious abnormalities. Bones: No suspicious bony lesions. Visualized cervical spine appears normally aligned. IMPRESSION: No significant intracranial arterial abnormality is seen. No significant abnormality is seen within the arteries of the neck. Any quantitative measurements of stenosis were performed using NASCET criteria. Dictated by: Nighat Chavez M.D. on 12/15/2024 at 12:39 Approved by: Nighat Chavez M.D. on 12/15/2024 at 12:40
--- NOTE | 2024-12-15 12:09 | ED_ITS ---
HPI - Neuro Symptoms/Deficit General Chief Complaint: Neuro Symptoms/Deficit Stated Complaint: per pt stroke workup sent by eye dr Time Seen by Provider: 12/15/24 11:53 Source: patient Mode of arrival: Ambulatory History of Present Illness HPI Narrative: This is a 69-year-old female referred to us from ophthalmology clinic for concerned about TIA. Patient is not presently symptomatic. She says that 3 days ago she had an episode where she noted that the upper part of the vision from her right eye was squiggly. Describes it as like heat waves coming off of Warm pavement. This lasted for about an hour and then resolved. Yesterday she also had visual changes involving her right eye with a larger area of similar visual changes and then loss of vision in the upper right eye. Has had some headaches with this, no nausea vomiting no focal numbness or weakness difficulty with speech or swallowing. Has not had similar symptoms in the past. Her only past medical history of hypertension she takes losartan 25 mg daily and said that she took it today. No diabetes or elevated cholesterol, not a smoker. Has not had similar symptoms in the past. Was seen in ophthalmology clinic head and examination is then referred here. The patient does not notice jaw claudication and does not have temporal headaches. On Anticoagulants: No Related Data Previous Rx's Medication Instructions Recorded losartan 25 mg tablet 25 mg PO DAILY #90 tabs 10/10/23 conjugated estrogens 0.625 mg/gram 0.5 mg vaginal 2XW #30 grams 01/22/24 vaginal cream ondansetron 4 mg disintegrating 4 mg PO Q6H PRN nausea and 03/26/24 tablet vomiting #10 tabs Allergies Allergy/AdvReac Type Severity Reaction Status Date / Time No Known Drug Allergies Allergy Verified 12/15/24 11:45 Review of Systems Hematologic/Lymphatic On Anticoagulants: No Patient History Medical History Dyspareunia Pulmonary hypertension, unspecified (06/23/12) Left knee pain Lumbosacral radiculopathy due to degenerative joint disease of spine Essential hypertension Serum calcium elevated Hearing loss Irritable bowel syndrome Surgical History History of hip replacement Status post appendectomy History of tonsillectomy Family History Mother Hypertension Sister Age: 71 Ovarian cancer Breast cancer Hypertension Social History marital status: education level: master's degree Smoking Status: Never smoker second hand exposure: No alcohol intake: current substance use type: does not use Smoking Status: Never smoker alcohol intake frequency: 0-2 drinks per day Exam Initial Vital Signs Initial Vital Signs: Vital Signs Temperature 97.0 F L 12/15/24 11:40 Pulse Rate 87 12/15/24 11:40 Respiratory Rate 13 12/15/24 11:40 Blood Pressure 216/100 H 12/15/24 11:40 Pulse Oximetry 99 12/15/24 11:40 Oxygen Delivery Method Room Air 12/15/24 11:40 Patient is hypertensive Const Other: well-appearing no acute distress HENMT HENMT Other: normocephalic atraumatic Eyes Other: pupils are symmetrically dilated, extraocular movements are intact, there are no visual field cuts Neck Other: supple without carotid bruit Resp Other: lungs are clear equal breath sounds normal effort Cardio Other: regular rhythm and rate no murmur or gallop Skin Other: warm and dry Neuro General: patient alert, patient oriented x3 and normal light touch, pain and propioception Cognition: normal cognition Speech: speech normal Motor: strength 5/5 throughout and no movement abnormalities noted Sensory Exam: no sensory deficits noted Coordination: [id number] test normal Course Orders Ordered: ED Orders 12/15/24 11:50 CRP [C-Reactive Protein Quant] Stat Complete Blood Count AUTO DIFF Stat Comprehensive Metabolic Panel Stat ESR [Erythrocyte Sedimentation Rate] Stat PTT Partial Thromboplastin Seth Stat Prothrombin Time INR Stat Troponin I Stat 12/15/24 12:[address] angio head and neck Stat EKG-12 Lead Stat 12/15/24 12:56 Urinalysis and Microscopic Stat 12/15/24 13:04 MR head/brain wo/w con Stat Consultations Consultation #1: discussed with Ophthalmology, Dr. Zamorano visual field cuts of the right eye with left retinal abnormality, concern for stroke, demyelinating disease, temporal arteritis Vital Signs Vital signs: Vital Signs - 8 hr 12/15/24 11:40 12/15/24 11:43 12/15/24 11:43 Temperature 97.0 F L Pulse Rate 87 Respiratory Rate 13 Blood Pressure 216/100 H 216/100 H Pulse Oximetry 99 100 Oxygen Delivery Method Room Air 12/15/24 12:00 12/15/24 12:28 12/15/24 12:28 Temperature Pulse Rate 83 75 Respiratory Rate 18 14 Blood Pressure 155/94 H Pulse Oximetry 100 100 Oxygen Delivery Method 12/15/24 12:30 12/15/24 12:30 12/15/24 12:54 Temperature Pulse Rate 74 Respiratory Rate 12 Blood Pressure 149/90 H 170/85 H Pulse Oximetry 100 Oxygen Delivery Method 12/15/24 12:54 12/15/24 13:00 12/15/24 13:00 Temperature Pulse Rate 70 68 Respiratory Rate 12 Blood Pressure 152/82 H Pulse Oximetry 100 100 Oxygen Delivery Method 12/15/24 13:30 12/15/24 13:30 12/15/24 14:00 Temperature Pulse Rate 66 Respiratory Rate 14 Blood Pressure 146/80 H 129/72 Pulse Oximetry 100 Oxygen Delivery Method 12/15/24 14:00 12/15/24 14:45 12/15/24 14:47 Temperature Pulse Rate 62 70 Respiratory Rate 15 Blood Pressure 136/74 Pulse Oximetry 99 Oxygen Delivery Method 12/15/24 14:47 12/15/24 15:00 12/15/24 15:00 Temperature Pulse Rate 72 74 Respiratory Rate 15 18 Blood Pressure 137/79 Pulse Oximetry 100 99 Oxygen Delivery Method 12/15/24 15:30 12/15/24 15:30 12/15/24 16:00 Temperature Pulse Rate 74 Respiratory Rate 25 H Blood Pressure 180/86 H 144/80 H Pulse Oximetry 99 Oxygen Delivery Method 12/15/24 16:00 12/15/24 18:26 12/15/24 18:26 Temperature Pulse Rate 68 76 Respiratory Rate 14 17 Blood Pressure 139/77 Pulse Oximetry 99 99 Oxygen Delivery Method MDM - Neuro Symptoms/Deficit Lab Data Lab results narrative: CBC with diff and CMP are unremarkable normal CRP normal ESR 12/15/24 11:50 12/15/24 11:50 Labs: Lab Results 12/15/24 12/15/24 Range/Units 11:50 12:56 WBC 6.6 (4.5-11.0) X10^3/uL RBC 4.57 (4.0-5.2) X10^6/uL Hgb 14.0 (12.0-16.0) g/dL Hct 41.3 (36-46) % MCV 90.3 (80-100) fL MCH 30.5 (26-34) PG MCHC 33.8 (30-36) % RDW 13.3 (11.6-14.8) % Plt Count 313 (150-400) X10^3/uL Neut % (Auto) 63.6 (50-75) % Lymph % (Auto) 28.0 (25-40) % [place] % (Auto) 6.8 (3-14) % Eos % (Auto) 1.2 L (2-4) % Baso % (Auto) 0.4 (0-2) % Neut # (Auto) 4200 (9290-1276) /uL Lymph # (Auto) 1900 (8359-9153) /uL [place] # (Auto) 400 (0-900) /uL Eos # (Auto) 100 (0-450) /uL Baso # (Auto) 0 (0-100) /uL ESR 7 (0-20) MM/HR PT 10.4 (9.4-12.5) SECONDS INR 0.9 (0.9-1.3) APTT 36 (25.1-36.5) SECONDS Sodium 137 (137-145) mmol/L Potassium 4.3 (3.4-5.1) mmol/L Chloride 104 (98-107) mmol/L Carbon Dioxide 24 (22-32) mmol/L BUN 18 H (7-17) mg/dL Creatinine 0.82 (0.52-1.04) mg/dL Estimated GFR > 60 (>60) mL/min BUN/Creatinine Ratio 22.0 (6-22) Glucose 92 (80-110) mg/dL Calcium 10.7 H (8.4-10.2) mg/dL Total Bilirubin 0.6 (0.2-1.3) mg/dL AST 32 (14-36) IU/L ALT 22 (<35) IU/L Alkaline Phosphatase 61 (38-126) U/L Troponin I < 0.012 (0.01-0.034) ng/mL C-Reactive Protein < 0.5 (<1.0) mg/dL Total Protein 8.0 (6.3-8.2) g/dL Albumin 5.0 (3.5-5.0) g/dL Globulin 3.0 (1.7-4.1) g/dL Albumin/Globulin Ratio 1.7 (1.0-2.8) Urine Color Yellow Urine Appearance Clear Urine pH 7.0 (4.5-8.0) Ur Specific [place] <=1.005 (1.000-1.035) Urine Protein Negative (Negative) Urine Glucose (UA) Negative (Negative) g/dL Urine Ketones Negative (NEGATIVE) Urine Occult Blood Trace-intact (Negative) Urine Nitrate Negative (Negative) Urine Bilirubin Negative (NEGATIVE) Urine Urobilinogen 0.2 (0.2) E.U./dL Ur Leukocyte Esterase Negative (NEGATIVE) Urine RBC None seen (0-5/HPF) Urine WBC None seen (0-5/HPF) Ur Squamous Epith Cells 0-1 /hpf (0-5/HPF) Urine Bacteria None seen (None) Ur Culture Indicated? Cult not indicated Vol Urine Centrifuged 10ml (spun) Imaging Data MRI brain: Radiologist's Impression: [place] [address] Magnetic Resonance Report Signed Patient: Mary Bauer MR#: [id number] : 1955 Acct:[id number] Age/Sex: 69 / F Date of Service: 12/15/24 Loc: ED Accession Number: [id number] Procedure: MR head/brain wo/w con Ordering Provider: Gordon Gutierrez MD PROCEDURE: MR HEAD/BRAIN WO/W CON INDICATIONS: visual changes TIA vs demyelinating disease TECHNIQUE: Noncontrast axial T1 spin echo, axial T2 fast spin echo, sagittal and axial FLAIR, coronal T2 fast spin echo, axial gradient echo, axial diffusion and ADC through the brain. After the administration of contrast, axial and coronal and sagittal T1 spin echo with fat saturation through the brain. COMPARISON: [facility], CT, CT STROKE, 12/15/2024, 12:17. [facility], CT, CT ANGIO HEAD AND NECK, 12/15/2024, 12:17. [facility], CT, CT ANGIO HEAD AND NECK, 12/18/2021, 23:24. FINDINGS: Image quality: Excellent. CSF spaces: Basal cisterns are patent. No extra-axial fluid collections. Ventricles are normal in size and shape. Brain: No midline shift. No intracranial bleeds or masses. No abnormal intracranial enhancement. There is cerebral volume loss for age. There is periventricular white matter chronic small vessel ischemic change. The brainstem appears normal. Diffusion-weighted images demonstrate no acute infarct. No chronic ischemic insults. Normal intravascular flow voids are present. Skull and face: Calvarial marrow is normal in signal. Orbits appear normal. Sinuses: Sinuses and mastoids appear clear. IMPRESSION: 1. No acute intracranial process. 2. Mild atrophy and chronic microvascular ischemic changes. No convincing changes of demyelinating disease. Dictated by: Nighat Chavez M.D. on 12/15/2024 at 15:06 Approved by: Nighat Chavez M.D. on 12/15/2024 at 15:08 CT angio head and neck: Radiologist's Impression: reviewed radiology report, no significant intracranial or cervical abnormality CT scan - head: My Impression: independent review, no acute findings Radiologist's Impression: no acute abnormality per Radiology come on ECG Data Interpretation: ECG shows normal sinus rhythm no acute findings MDM Narrative Medical decision making narrative: 69-year-old female with 2 recent episodes of transient visual field cuts. Differential diagnosis includes TIA, stroke, temporal arteritis and demyelinating disease. Imaging is reassuring, she has not had any non visual neurologic deficits. TIA is less likely at this point. No imaging findings to suggest stroke or cerebrovascular disease. recommended follow up with Ophthalmology and primary care. Discharge Plan Departure Patient Disposition: Home Clinical Impression: Monocular visual disturbance Activity Restrictions/Additional Instructions: emergency department evaluation today is reassuring. I recommend you follow up with Ophthalmology soon and follow up with your primary care provider. If you have recurrent neurologic symptoms please recheck in the emergency department immediately. Continue previous home medications. Prescriptions: No Action conjugated estrogens 0.625 mg/gram cream 0.5 mg vaginal 2XW Qty: 30 0RF Rx Instructions: apply twice weekly losartan 25 mg tablet 25 mg PO DAILY Qty: 90 3RF ondansetron 4 mg tablet,disintegrating 4 mg PO Q6H PRN (Reason: nausea and vomiting) Qty: 10 0RF Referrals: Andree Albrecht MD [Primary Care Provider] - Stand Alone Forms: Patient Portal/API/Survey
[2024-12-15 12:16] LABS: Add Manual Diff / Slide Review NO; Basophils Absolute Auto 0 /uL (0-100); Basophils Percent Auto 0.4 % (0-2); Eosinophils Absolute Auto 100 /uL (0-450); Eosinophils Percent Auto 1.2 % (2-4); Hematocrit 41.3 % (36-46); INR 0.9 (0.9-1.3); Lymphocytes Absolute Auto 1900 /uL (1100-4500); Mean Corpuscular HGB Conc 33.8 % (30-36); Mean Corpuscular Hemoglobin 30.5 PG (26-34); Mean Corpuscular Volume 90.3 fL (80-100); Monocytes Absolute Auto 400 /uL (0-900); Monocytes Percent Auto 6.8 % (3-14); Neutrophils Absolute Auto 4200 /uL (1500-7000); Neutrophils Percent Auto 63.6 % (50-75); Platelet Count 313 X10^3/uL (150-400); Prothrombin Time 10.4 SECONDS (9.4-12.5); Red Blood Cell Count 4.57 X10^6/uL (4.0-5.2); Red Cell Distribution Width 13.3 % (11.6-14.8); White Blood Cell Count 6.6 X10^3/uL (4.5-11.0)
[2024-12-15 12:19] LABS: PTT Partial Thromboplastin Tim 36 SECONDS (25.1-36.5)
[2024-12-15 12:23] LABS: Alanine Aminotransferase 22 IU/L (<35); Albumin Globulin Ratio 1.7 (1.0-2.8); Alkaline Phosphatase 61 U/L (38-126); Aspartate Aminotransferase 32 IU/L (14-36); Bilirubin Total 0.6 mg/dL (0.2-1.3); Blood Urea Nitrogen 18 mg/dL (7-17); C-Reactive Protein Quant < 0.5 mg/dL (<1.0); Calcium 10.7 mg/dL (8.4-10.2); Carbon Dioxide 24 mmol/L (22-32); Chloride 104 mmol/L (98-107); Estimated Glomerular Filt Rate > 60 mL/min (>60); Glucose 92 mg/dL (80-110); HEMOLYSIS < 15 (0-50); Potassium 4.3 mmol/L (3.4-5.1); Sodium 137 mmol/L (137-145)
--- NOTE | 2024-12-15 12:25 | EKG_ITS ---
[id number] [place] [address] Test Date: 2024-12-15 Pat Name: Mary Bauer Department: [facility] Room: Gender: Female Online Tutor: COOPER : 1955 Requested By: Order Number: [id number] Reading MD: Carlos A Cobos Measurements Intervals [place] Rate: 73 P: 73 [place]: 104 QRS: 80 QRSD: 82 T: 56 QT: 372 QTc: 409 Interpretive Statements Sinus rhythm with short [place] Nonspecific ST abnormality Electronically Signed On 12-15-2024 18:29:20 PST by Carlos A Cobos
[2024-12-15 12:32] LABS: Troponin I < 0.012 ng/mL (0.01-0.034)
[2024-12-15 12:35] LABS: Erythrocyte Sedimentation Rate 7 MM/HR (0-20)
[2024-12-15 12:59] LABS: Appearance Urine UA CLEAR; Bilirubin Urine UA NEGATIVE (NEGATIVE); Color Urine UA YELLOW; Glucose Urine UA NEGATIVE (Negative); Ketones Urine UA NEGATIVE (NEGATIVE); Leukocyte Esterase Urine UA NEGATIVE (NEGATIVE); Nitrite Urine UA NEGATIVE (Negative); Occult Blood Urine UA TRACE-INTACT (Negative); Protein Urine UA NEGATIVE (Negative); Specific Gravity Urine UA <=1.005 (1.000-1.035); Urobilinogen Urine UA 0.2 E.U./dL (0.2)
--- NOTE | 2024-12-15 13:04 | DI.MRI.S_ITS ---
PROCEDURE: MR HEAD/BRAIN WO/W CON INDICATIONS: visual changes TIA vs demyelinating disease TECHNIQUE: Noncontrast axial T1 spin echo, axial T2 fast spin echo, sagittal and axial FLAIR, coronal T2 fast spin echo, axial gradient echo, axial diffusion and ADC through the brain. After the administration of contrast, axial and coronal and sagittal T1 spin echo with fat saturation through the brain. COMPARISON: [facility], CT, CT STROKE, 12/15/2024, 12:17. [facility], CT, CT ANGIO HEAD AND NECK, 12/15/2024, 12:17. [facility], CT, CT ANGIO HEAD AND NECK, 12/18/2021, 23:24. FINDINGS: Image quality: Excellent. CSF spaces: Basal cisterns are patent. No extra-axial fluid collections. Ventricles are normal in size and shape. Brain: No midline shift. No intracranial bleeds or masses. No abnormal intracranial enhancement. There is cerebral volume loss for age. There is periventricular white matter chronic small vessel ischemic change. The brainstem appears normal. Diffusion-weighted images demonstrate no acute infarct. No chronic ischemic insults. Normal intravascular flow voids are present. Skull and face: Calvarial marrow is normal in signal. Orbits appear normal. Sinuses: Sinuses and mastoids appear clear. IMPRESSION: 1. No acute intracranial process. 2. Mild atrophy and chronic microvascular ischemic changes. No convincing changes of demyelinating disease. Dictated by: Nighat Chavez M.D. on 12/15/2024 at 15:06 Approved by: Nighat Chavez M.D. on 12/15/2024 at 15:08
[2024-12-15 13:09] LABS: Bacteria Urine None Seen; Culture Indicated Urine Cult Not Indicated; RBC Urine None Seen (0-5/HPF); Squamous Epithelial Cell Urine 0-1 /HPF (0-5/HPF); Urine Volume 10mL (spun); WBC Urine None Seen (0-5/HPF)
== END 2024-12-15 19:03 | disposition home or self-care (01) ==
PROVIDERS: Emergency Provider Emergency Medicine; PCP Family Medicine
DX: H53.9 Unspecified visual disturbance (principal); I10 Essential (primary) hypertension; R29.700 NIHSS score 0
CPT/HCPCS: 36415; 70450; 70496; 70498; 70553; 80053; 81001; 84484; 85025; 85610; 85651; 85730; 86140; 93005; 99284; A9579; Q9967

== ENCOUNTER → 2025-01-15 16:44 | Outpatient (CLI) | payer MEDICARE, OTHER, SELFPAY ==
[2025-01-19 06:36] LABS: Parathyroid Hormone Int 52 pg/mL (15-65)
== END ==
PROVIDERS: PCP Family Medicine; Referring Provider Family Medicine; Visit Provider Family Medicine
DX: E83.52 Hypercalcemia (principal); A41.9 Sepsis, unspecified organism
CPT/HCPCS: 36415; 83970; 87040

== ENCOUNTER → 2025-02-13 11:11 | Outpatient (CLI) | payer MEDICARE, OTHER, SELFPAY ==
--- NOTE | 2025-02-13 11:13 | DI.MRI.S_ITS ---
PROCEDURE: MR KNEE RT WO CON INDICATIONS: Rt knee injury TECHNIQUE: Noncontrast sagittal PD fast spin echo and T2 fast spin echo with fat saturation, sagittal 3-D FLASH with fat saturation; coronal T1 spin echo and PD fast spin echo with fat saturation, and axial PD fast spin echo with fat saturation through the knee. COMPARISON: No prior MRI right knee for comparison. FINDINGS: Image quality: Excellent. Some images are limited by metallic susceptibility artifact in the anterior-medial proximal tibial metaphysis possibly related to prior anterior cruciate ligament repair or other surgery. Extensive soft tissue edema posterior to the distal femur and at the proximal origins of the medial and lateral heads of the gastrocnemius muscles with moderate injury/tear. Extensive edema is also noted at the distal attachment of the vastus lateralis surrounding the anterior-lateral aspect of the distal biceps femoris muscle and in the distal semimembranosus muscle into the proximal tendon. Soft tissue edema surrounds the distal aspects of the pes anserine tendons. [id number] knee joint effusion. Menisci: Posterior meniscocapsular separation medial and lateral. Abnormal signal and irregularity of the anterior horn of the lateral meniscus which extends to the superior surface suspicious for oblique tear, some of which may be chronic. Abnormal signal in the posterior horn of the medial meniscus which appears to extend to the superior and inferior surfaces suspicious for complex, oblique tear. There is some blunting of the apex of the anterior horn of the medial meniscus extending towards the midbody some of which may be chronic. Cruciate ligaments: Increased T2 weighted signal and thinning of the mid and distal aspect of the anterior cruciate ligament some of which may be chronic but with intact fibers. Posterior cruciate ligament is normal in size and signal intensity. Medial structures: Mild increased T2 weighted signal surrounding the medial collateral ligament probable grade 1 injury with intact fibers. Lateral structures: Increased T2 weighted signal/edema surrounding the lateral collateral ligament and moderate edema surrounding the iliotibial band and the lateral aspect of the popliteus tendon. Anterior structures: Moderate diffuse edema in the infrapatellar and suprapatellar fat pads is nonspecific. The quadriceps and patellar tendons appear intact. Patellar alignment is normal. Bones and cartilage: Mild diffuse thinning of the medial and lateral patellar facets with mild chondromalacia. [id number] diffuse thinning of the medial compartment femoral and tibial cartilage greater than lateral compartment. No gross focal cartilage defect. Mild 1 centimeter area low T1 high T2 bone edema in the anterior aspect of the lateral tibial plateau some of which may be chronic or related to bone contusion. Moderate popliteal cyst measures up to approximately 3 centimeters cc by 2 centimeters AP x 1 centimeter transverse. IMPRESSION: Extensive acute soft tissue edema posterior to the distal femur and at the level of the knee joint as discussed above, mostly related to partial tears of the proximal medial and lateral gastrocnemius as well as injury of the distal semimembranosus, vastus lateralis, and pes anserine muscles. Complex tear of the posterior horn of the medial meniscus as discussed above. Suspected oblique tear of the anterior horn of the lateral meniscus. Injury/strain of the distal anterior cruciate ligament some of which may be chronic. Large knee joint effusion. Other chronic findings as above Dictated by: Aldo Marroquin M.D. on 02/15/2025 at 9:35 Approved by: Aldo Marroquin M.D. on 02/15/2025 at 10:28
== END ==
PROVIDERS: PCP Family Medicine; Referring Provider Physician Assistant; Visit Provider Physician Assistant
DX: S83.231A Complex tear of medial meniscus, current injury, right knee, initial encounter (principal); S83.511A Sprain of anterior cruciate ligament of right knee, initial encounter; S76.811A Strain of other specified muscles, fascia and tendons at thigh level, right thigh, initial encounter; S89.91XA Unspecified injury of right lower leg, initial encounter; M25.461 Effusion, right knee; M71.21 Synovial cyst of popliteal space [Baker], right knee; X58.XXXA Exposure to other specified factors, initial encounter
CPT/HCPCS: 73721